=== PATIENT | female | born 1965 | race Caucasian/White ===

== ENCOUNTER 2017-11-01 05:15 | Day surgery (SDC) | payer BC ==
[~2017-11-01] VITALS: Ht 172.7 cm; Wt 89.4 kg
--- NOTE | ~2017-11-01 | O ---
[facility] [place] [address] OPERATIVE REPORT Name: ITALIA TOBAR Room #: [facility]#: [id number] Admission: 11/01/17 Attend Phys: Sven Hickman MD Discharge: 11/01/17 Date of : 69 Report #: [id number] THIS REPORT FOR: //name// CC: [facility] physician/PCP Sven Hickman DATE OF SERVICE: 11/01/2017 DATE OF SURGERY: 11/01/2017. PREOPERATIVE DIAGNOSES: Nasal airway obstruction, deviated septum, turbinate hypertrophy and epistaxis. POSTOPERATIVE DIAGNOSES: Nasal airway obstruction, deviated septum, turbinate hypertrophy and epistaxis. PROCEDURE: Nasal septoplasty, inferior turbinate submucous resection and outfracturing. SURGEON: Sven Hickman M.D. ANESTHESIA: General LMA. INDICATIONS: See H and P. 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 Surgical exploration demonstrated there was a 1 cm, somewhat circular area of missing quadrangular cartilage adjacent to the area of the septal ulceration. Deviation of the septum was also noted along with turbinate enlargement. TECHNIQUE: After obtaining consent, the patient was brought to the operating suite and appropriate time out was performed. General anesthesia was obtained by Anesthesia. The bed was turned 90 degrees. Nose was prepped and draped in the usual sterile fashion and 4 mL of 1% Xylocaine and 1:100,000 epinephrine was injected equally on each side of the nasal septum. A cottonoid soaked with Afrin placed in each side for vasoconstriction of the inferior turbinates. Later in the case, an additional mL was injected submucosally at each inferior turbinate, care being made not to inject intravascularly. The cottonoids were removed. A right-sided hemitransfixion incision was made, elevated mucoperichondrial flap off the left side of the quadrangular cartilage. Upon elevating the mucosal flap, I came across the area of devitalized cartilage in the center. I, therefore, dissected superior and inferior tunnels to this area and reconnected the mucosal flap posterior to the missing cartilage. I then gently the 2 mucosal folds from each other, making [facility] [address] [place] [address] OPERATIVE REPORT Name: ITALIA TOBAR Room #: [facility].#: [id number] Admission: 11/01/17 Attend Phys: Sven Hickman MD Discharge: 11/01/17 Date of : 69 Report #: [id number] sure not to cause perforation. I then continued to elevate the mucosal flap back past the quadrangular cartilage and disarticulated the bony cartilaginous junction. I continued elevating mucoperiosteal flap back on the left side, exposing the vomer and perpendicular plate. I then harvested a deviation of the quadrangular cartilage, not incorporating the area of missing cartilage, so essentially removing a somewhat rectangular shape posterior to the perforation, where most of the deviation was located. I then elevated the mucosal flap off the quadrangular cartilage posterior to the perforation on the right side as well as off the vomer and perpendicular plate on the right side. Deviation of the vomer and perpendicular plate was removed with Lele-Fabiana scissors and Jaxon forceps. Previously harvested cartilage was morcellized. I trimmed and placed a piece of this quadrangular cartilage at the area of the defect and reapproximated the hemitransfixion incision with 4-0 chromic suture. I ensured that the mucosal flap on the right side was intact. There was no perforation noted in the area of concern. Simple splints were divided designed and fashioned by myself, placed in each side of the septum and secured with a single 3-0 Prolene suture x 2. Each inferior turbinate was medialized with a [place] A small incision was made on the anterior aspect of each inferior turbinate. A submucosal tunnel was developed on the medial and medial inferior surfaces bilaterally. The microdebrider was used to reduce the volume bilaterally. Each inferior turbinate was then outfractured with a [place] elevator. A single piece of Merogel was trifolded and placed between the septum and the inferior turbinate on the right side x 2, left side x 1. She was then returned over to anesthesia, having met the goals of surgery. She was then awakened from anesthesia and taken to recovery in stable condition. ESTIMATED BLOOD LOSS: Less than 25 mL. By: [id number] Sven Hickman MD /nt
[2017-11-01 07:00] VITALS: BP 119/68
[2017-11-01 09:30] VITALS: BP 119/68
== END 2017-11-01 10:35 | disposition home or self-care (01) ==
LOC: TBA 05:15 → OR 05:15
DX: J34.2 Deviated nasal septum (principal); J34.3 Hypertrophy of nasal turbinates; J34.89 Other specified disorders of nose and nasal sinuses; R04.0 Epistaxis; Z98.0 Intestinal bypass and anastomosis status; Z98.890 Other specified postprocedural states; Z98.51 Tubal ligation status; Z88.8 Allergy status to other drugs, medicaments and biological substances; Z85.038 Personal history of other malignant neoplasm of large intestine
CPT/HCPCS: 50010; 50101; 50386; 50398; 51316; 51634; 53635; 56526; 56528; 62110; 62900; 64037